=== PATIENT | female | born 1990 | race Two or more races ===

== ENCOUNTER 2023-03-07 08:56 | Emergency (ER) | payer MEDICAID ==
[~2023-03-07] VITALS: Ht 152.4 cm; Wt 112.4 kg
[2023-03-07 09:03] VITALS: BP 182/95; PULSE 89; RESP 18; O2SAT 98
[2023-03-07] MEDS ORDERED: LIDO2SOL26 MT (14:32)
[2023-03-07] MEDS ORDERED: AUG875T PO (14:32)
[2023-03-07] MEDS ORDERED: METH4PAK PO (14:32)
[2023-03-07] MEDS ORDERED: NABU-72 PO (14:32)
== END 2023-03-07 10:06 | disposition left against medical advice (07) ==
LOC: ER 08:56
DX: J02.9 Acute pharyngitis, unspecified (principal); Z53.21 Procedure and treatment not carried out due to patient leaving prior to being seen by health care provider

== ENCOUNTER 2023-03-07 12:14 | Emergency (ER) | payer MEDICAID ==
[~2023-03-07] VITALS: Ht 152.4 cm; Wt 112.4 kg
[2023-03-07 12:38] VITALS: BP 151/82; PULSE 81; RESP 18; TEMP 98.4; O2SAT 97
[2023-03-07] MEDS ORDERED: cefTRIAXone SOD 1,000 MG VL IM ONE (13:15)
[2023-03-07] MEDS ORDERED: LIDOCAINE VISCOUS 2% 15ML UD PO ONE (13:15)
[2023-03-07] MEDS ORDERED: DexAMETHasone SOD PHOS 10MG/1ML VIAL INJ IM ONE (13:15)
[2023-03-07] MEDS ORDERED: METH4PAK PO (14:32)
[2023-03-07] MEDS ORDERED: LIDO2SOL26 MT (14:32)
[2023-03-07] MEDS ORDERED: NABU-72 PO (14:32)
[2023-03-07] MEDS ORDERED: AUG875T PO (14:32)
== END 2023-03-07 14:39 | disposition home or self-care (01) ==
LOC: ER 12:14
DX: J03.90 Acute tonsillitis, unspecified (principal); Z79.2 Long term (current) use of antibiotics; Z79.899 Other long term (current) drug therapy
CPT/HCPCS: 96372; 99284; J0696; J1100

== ENCOUNTER 2024-05-20 13:54 | Emergency (ER) | payer MEDICAID ==
[~2024-05-20] VITALS: Ht 152.4 cm; Wt 113.8 kg
[~2024-05-20 13:54] MED LIST: AUG875T PO; LIDO2SOL26 MT; METH4PAK PO; NABU-72 PO
[2024-05-20 14:39] VITALS: BP 157/89
[2024-05-20 16:29] VITALS: PULSE 94; RESP 16; O2SAT 97
[2024-05-20] MEDS ORDERED: HYDR-4902 PO (16:53)
--- NOTE | 2024-05-20 16:54 | ED.PDOC ---
Musculoskeletal HPI Comments This is pleasant 33-year-old female with a pertinent MHx that presents with a chief complaint of right lower back pain that radiates down the right posterior leg. Symptoms started 14 days ago and denies any trauma or injury. Patient reports having the same symptoms one year ago and was diagnosed with sciatica. Denies any other complaint or concern. Was seen at urgent care two days ago and was given a shot of Toradol with some improvement. Was also prescribed muscle relaxers with minimal improvement i Denies history of chronic steroid use or history of osteoporosis Denies any history of cancer Denies fevers chills night sweats nausea vomiting unintentional weight loss Denies IV drug use history of HIV/TB Denies abdominal "tearing" pain Denies syncope Denies urinary incontinence or urinary changes Denies numbness tingling of the groin or inner thigh Denies previous back procedure or surgery Chief Complaint: Lower Extremity Time Seen by MD: 15:19 Primary Care Provider: UNKNOWN Reviewed Notes: Nurses Notes Allergies: Coded Allergies: NO KNOWN ALLERGIES (Unverified , 03/07/23) Home Meds Active Scripts Hydrocodone-Acetaminophen (Hydrocodone Bitartrate/AC 5-325 mg) 1 Tab Tab, 1 TAB PO Q8HP PRN for 3 Days, #9 TAB 0 Refills Prov:GAMA GAO OCCUPATIONAL THERAPY TECHNICIAN 05/20/ Lidocaine HCl (Mouth-Throat) (Lidocaine HCl Viscous) 2 % Audrey, 2 % MT Q4HPRN PRN for 5 Days, #100 ML Prov:NEVIN ORTIZP 03/07/23 Amoxicillin & Pot Clavulanate (AUGMENTIN TABLET) 875 Mg Tb, 875 MG PO BID for 10 Days, #20 TAB Prov:NEVIN ORTIZP 03/07/23 Nabumetone (Nabumetone) 500 Mg Tab, 1 TAB PO BID PRN, #20 TAB Prov:NEVIN ORTIZP 03/07/23 Methylprednisolone (Medrol Dosepak) 4 Mg Miguel, 4 MG PO UD, #21 TAB UAD Prov:NEVIN ORTIZP 03/07/23 Mode of Arrival: Ambulatory Past Medical History PAST MEDICAL HISTORY: Denies Surgical History: Denies all surgeries COMMUNITY PLANNING TECHNICIAN History: No Pertinent COMMUNITY PLANNING TECHNICIAN History Family History Family History: Reviewed,noncontributory to illness, No family hx of Cancer, No family hx of DM, No family hx of Heart terry, No family hx of HTN, No family hx ofKidney terry, No family hx of Liver terry, No family hx of Lung terry, No family hx of Stroke Social History Smoker: Non-Smoker Alcohol: Denies ETOH Use Drugs: Denies Drug Use All Other Systems: Reviewed and Negative (Per hpi) Physical Exam General Appearance: No Apparent Distress, Normal HEENT: Normal ENT Inspection, Pharynx Normal, TMs Normal Neck: Full Range of Motion, Non-Tender, Normal, Normal Inspection Respiratory: Chest Non-Tender, Lungs Clear, No Accessory Muscle Use, No Respiratory Distress, Normal Breath Sounds Cardiovascular: No Edema, No JVD, No Murmur, No Gallop, Normal Peripheral Pulses, Regular Rate/Rhythm Breast Exam: Deferred Gastrointestinal: No Organomegaly, Non Tender, No Pulsatile Mass, Normal Bowel Sounds, Soft Genitalia: Deferred Pelvic: Deferred Rectal: Deferred Extremities: No calf tenderness, Normal capillary refill, Normal inspection, Normal range of motion, Non-tender, No pedal edema Musculoskeletal : Location: Right Extremity Location: Back (RLBP. RSLR test +) Apperance: Normal Neurologic: Alert, tea blender II-XII nml as Tested, No Motor Deficits, Normal Affect, No Sensory Deficits Cerebellar Function: Normal Reflexes: Normal Skin: Dry, Normal Color, Warm Lymphatic: No Adenopathy Was a procedure done? Was a procedure done?: No Differential Diagnosis EXT Differential Diagnosis: Other X-Ray, Labs, Meds, VS Vital Signs Date Time Temp Pulse Resp B/P (MAP) Pulse Ox O2 Delivery O2 Flow Rate FiO2 05/20/24 16:29 94 16 97 Room Air 05/20/24 14:39 97.8 94 16 157/89 (111) 97 Current Medications Medications (Trade) Dose Ordered Sig/John Route Start Time Stop Time Status Last Admin Methylprednisolone Sodium Succinate (Solu Medrol) 125 mg ONCE ONCE IM 05/20/24 16:30 05/20/24 16:31 DC 05/20/24 17:07 X-Ray, Labs, Meds, VS Comment Given patient's history and exam: Sciatica, cord compression, cauda equina, aortic dissection, Guillain-[place] syndrome, epidural hematoma/abscess were all considered. Patient not toxic or ill-appearing. Vital signs within acceptable limits. Positive straight leg raise on exam with tenderness to the buttock consistent with sciatica. No vertebral point tenderness noted over the T or L- spine. No paraspinal muscle tenderness noted. No fever or IV drug use the. The differential for an acute vascular, neurologic, malignant, or infectious etiologies is much less likely given his/her presentation. The patient does not warrant a radiological exam at this time. The patient was given Steroid IM for pain control in the ED. Checked the [employer] website, no history of narcotic use within the past year. Will prescribe [place] p.o. for pain management. Education provided on possible side effects of medication including drowsiness, nausea, respiratory distress, etc. Do not drive, operate heavy machinery or make legal decisions while taking medication. Follow-up with your PMD within 24 to 48 hours. On reassessment, the patient's symptoms improved, and patient was able to ambulate without assistive devices. The patient will f/u with PMD to see if his/her symptoms haydee. An MRI may need to be ordered if the symptoms worsen or do not improve over time. The patient was counseled in regard to the diagnosis and management of the condition and verbalized understanding of this. The patient understands to return to the ER or seek immediate medical attention if the symptoms worsen or return. On reevaluation, patient had symptomatic improvement. Patient is stable for discharge at this time. External notes reviewed. Test results and diagnostic imaging interpreted. All diagnostic findings, discharge care, education and instructions provided Follow-up with PCP in 2 to 3 days Patient verbalized understanding and agreed to treatment plan Vital signs stable, afebrile, no acute distress noted Patient ambulatory with strong steady gait Advised to return precautions for any new or worsening symptoms, return to ER immediately for re-evaluation Patient is aware that the purpose of this visit was for an acute medical emergency requiring emergent stabilization. Chronic conditions, including malignancies have not been ruled out. Patient is instructed to follow up with PCP as directed and discharge instructions for continued care and workup. If unable to arrange follow-up, patient is to return to the emergency department for reassessment. Patient (parent or legal guardian if applicable) was given verbal and written discharge instructions and acknowledges understanding. Time of 1ST Reevaluation: 16:50 Reevaluation 1ST: Improved Patient Education/Counseling: Diagnosis, Treatment Family Education/Counseling: Diagnosis, Treatment Departure 1 Departure Time of Disposition: 16:52 Impression: Primary Impression: Lumbar radiculopathy Disposition: HOME / SELF CARE / HOMELESS Condition: Stable e-Prescriptions Hydrocodone-Acetaminophen (Hydrocodone Bitartrate/AC 5-325 mg) 1 Tab Tab 1 TAB PO Q8HP PRN for 3 Days, #9 TAB 0 Refills Prov: GAMA GAO OCCUPATIONAL THERAPY TECHNICIAN 05/20/24 Critical Care Note Critical Care Time?: No Stability Stability form required: No Heart Score Heart Score: Heart Score Response (Comments) Value History N/A 0 EKG N/A 0 Age N/A 0 Risk Factors N/A 0 Troponin N/A 0 Total 0 GAMA GAO OCCUPATIONAL THERAPY TECHNICIAN May 20, 2024 16:54
[2024-05-20] MEDS: methylPREDNISolone SOD SUCC 125 MG/2 ML VL IM ONE (17:07)
== END 2024-05-20 17:08 | disposition home or self-care (01) ==
LOC: ER 13:54
DX: M54.16 Radiculopathy, lumbar region (principal); Z79.899 Other long term (current) drug therapy
CPT/HCPCS: 96372; 99283; J2919